=== PATIENT | female | born 1955 | race Caucasian/White ===

== ENCOUNTER → 2018-11-16 10:19 | Outpatient (CLI) | payer MEDICARE, SELFPAY ==
--- NOTE | 2018-11-16 | DI.RAD.S_ITS ---
PROCEDURE: FL BARIUM SWALLOW INDICATIONS: DYSPHAGIA COMPARISON: None. FINDINGS: Function: There is decreased esophageal peristalsis and delayed esophageal clearance. No elicited gastroesophageal reflux. Morphology: Air-contrast images demonstrate normal mucosal morphology however there is poor gaseous distention. Single contrast views show no esophageal strictures, extrinsic mass effects, or diverticula. Limited images of the stomach demonstrate normal appearance. IMPRESSION: Moderate esophageal dysmotility Dictated by: Ronen Gimenez M.D. on 11/16/2018 at 12:36 Approved by: Ronen Gimenez M.D. on 11/16/2018 at 12:39
== END ==
PROVIDERS: PCP Student in an Organized Health Care Education/Training Program; Visit Provider Student in an Organized Health Care Education/Training Program
DX: R13.10 Dysphagia, unspecified (principal); K22.4 Dyskinesia of esophagus
CPT/HCPCS: 74220

== ENCOUNTER → 2018-12-14 13:26 | Outpatient (CLI) | payer MEDICARE, SELFPAY | PROVIDERS: PCP Student in an Organized Health Care Education/Training Program; Visit Provider Student in an Organized Health Care Education/Training Program | DX: Z13.820 Encounter for screening for osteoporosis (principal); M81.0 Age-related osteoporosis without current pathological fracture; Z82.62 Family history of osteoporosis; F17.200 Nicotine dependence, unspecified, uncomplicated | CPT/HCPCS: 77080 ==